=== PATIENT | male | born 2000 | race Asian ===

== ENCOUNTER 2021-03-01 20:36 | Emergency (ER) | payer MEDICAID ==
[~2021-03-01] VITALS: Ht 170.2 cm; Wt 77.3 kg
[2021-03-01] MEDS ORDERED: PERTUSS(ACELL),DIPH,TET VAC/PF 0.5 ML SYRINGE IM. ONE (21:15)
[2021-03-01] MEDS ORDERED: LIDOCAINE 2% 5 ML JELLY TP ONE (21:15)
[2021-03-01] MEDS ORDERED: LIDOCAINE 1% 10 ML VIAL ONE (21:28)
[2021-03-01] MEDS ORDERED: LIDOCAINE 1% 10 ML VIAL ID ONE (21:30)
[2021-03-01 22:00] VITALS: BP 110/60
== END 2021-03-01 22:03 | disposition home or self-care (01) ==
LOC: EMS 20:41
DX: S01.511A Laceration without foreign body of lip, initial encounter (principal); S01.81XA Laceration without foreign body of other part of head, initial encounter; F11.90 Opioid use, unspecified, uncomplicated; Y04.0XXA Assault by unarmed brawl or fight, initial encounter; Y93.89 Activity, other specified; Y92.89 Other specified places as the place of occurrence of the external cause; Y99.8 Other external cause status
CPT/HCPCS: 12013; 90471; 90715; 99283; J3490

== ENCOUNTER 2021-03-04 20:45 | Emergency (ER) | payer MEDICAID ==
[~2021-03-04] VITALS: Ht 170.2 cm; Wt 77.3 kg
[2021-03-04 20:59] VITALS: BP 124/65
== END 2021-03-04 21:10 | disposition left against medical advice (07) ==
LOC: EMS 20:57
DX: R53.1 Weakness (principal); Z53.21 Procedure and treatment not carried out due to patient leaving prior to being seen by health care provider